=== PATIENT | male | born 1960 | race Caucasian/White ===

== ENCOUNTER 2022-11-10 11:13 | Emergency (ER) | payer BC ==
[~2022-11-10] VITALS: Ht 175 cm; Wt 117.0 kg
[2022-11-10] MEDS ORDERED: NS IV 1000 ML 1,000 ML IV STA (11:23)
--- NOTE | 2022-11-10 11:28 | ED Abdominal Pain ---
General Stated Complaint: ABD PAIN | LOWER BACK PAIN | HX OF KIDNEY STONES Source of Information: Patient Exam Limitations: No Limitations History of Present Illness Date Seen by Provider: Nov 10, 2022 Time Seen by Provider: 11:25 Initial Comments Patient is a 61-year-old male who presents ED with left lower groin pain, left flank pain. Symptoms started around 6:00 this morning when he woke up. Described as sharp and intermittent with increased intensity. Rates pain 12 out of 10. Reports vomiting 3 times this morning. Pain initially started in his left groin and has radiated to his left flank. History of similar type symptoms in the past diagnosed with a kidney stone several years ago that required lithotripsy. Patient denies of any pain with urination, decreased urine output, hematuria, chest pain, cough, short of breath, fever, chills. Patient denies taking thing for pain. Denies of any history. Denies any testicle or pain, testicle swelling Allergies and Home Medications Allergies Coded Allergies: No Known Drug Allergies (Unverified , 11/10/22) Patient Home Medication List Home Medication List Reviewed: Yes Hydrocodone/Acetaminophen (Hydrocodone-Acetamin 5-325 mg) 5 Mg-325 Mg Tablet, 1 TAB PO Q4H PRN for PAIN-MODERATE (5-7) Prescribed by: VENANCIO ROMO on 11/10/22 1308 Ondansetron (Ondansetron Odt) 4 Mg Tab.rapdis, 4 MG SL Q4H PRN for NAUSEA/VOMITING Prescribed by: VENANCIO ROMO on 11/10/22 1308 Tamsulosin HCl (Flomax) 0.4 Mg Cap, 0.4 MG PO DAILY Prescribed by: VENANCIO ROMO on 11/10/22 1308 Review of Systems Review of Systems Constitutional: No diaphoresis EENTM: No Blurred Vision, No Double Vision, No Eye Pain Respiratory: Denies Cough, Denies Orthopnea Gastrointestinal: Abdominal Pain; Denies Diarrhea; Nausea, Vomiting Genitourinary: Denies Burning, Denies Drainage; Flank Pain Musculoskeletal: back pain; No joint pain Skin: No change in color, No change in hair/nails All Other Systems Reviewed Negative Unless Noted: Yes Physical Exam Vital Signs Vital Signs - First Documented 11/10/22 11/10/22 11:20 13:39 Temp 35.9 Pulse 72 Resp 18 B/P (MAP) 125/66 Pulse Ox 97 Capillary Refill : Height/Weight/BMI Height: '" Weight: lbs. oz. kg; BMI Method: General Appearance: WD/WN, no apparent distress HEENT: PERRL/EOMI, normal ENT inspection, TMs normal, pharynx normal Neck: non-tender, full range of motion, supple Respiratory: chest non-tender, lungs clear, normal breath sounds, no respiratory distress, no accessory muscle use Cardiovascular: regular rate, rhythm, no edema, no gallop, no JVD Gastrointestinal: normal bowel sounds, soft, no organomegaly, tenderness (Left groin tenderness, left flank tenderness. Normal bowel sounds throughout.) Extremities: normal range of motion, non-tender, normal inspection Back: normal inspection, CVA tenderness (L) Neurologic/Psychiatric: lens examiner II-XII nml as tested, no motor/sensory deficits, alert, normal mood/affect, oriented x 3 Skin: normal color, warm/dry Progress/Results/Core Measures Results/Orders Lab Results Laboratory Tests Test 11/10/22 11:25 11/10/22 13:07 Range/Units White Blood Count 8.9 4.3-11.0 10^3/uL Red Blood Count 4.61 4.30-5.52 10^6/uL Hemoglobin 14.7 13.3-17.7 g/dL Hematocrit 44 40-54 % Mean Corpuscular Volume 96 80-99 fL Mean Corpuscular Hemoglobin 32 25-34 pg Mean Corpuscular Hemoglobin Concent 33 32-36 g/dL Red Cell Distribution Width 13.3 10.0-14.5 % Platelet Count 244 130-400 10^3/uL Mean Platelet Volume 10.7 9.0-12.2 fL Immature Granulocyte % (Auto) 0 % Neutrophils (%) (Auto) 68 42-75 % Lymphocytes (%) (Auto) 23 12-44 % Monocytes (%) (Auto) 6 0-12 % Eosinophils (%) (Auto) 2 0-10 % Basophils (%) (Auto) 1 0-10 % Neutrophils # (Auto) 6.1 1.8-7.8 10^3/uL Lymphocytes # (Auto) 2.1 1.0-4.0 10^3/uL Monocytes # (Auto) 0.6 0.0-1.0 10^3/uL Eosinophils # (Auto) 0.2 0.0-0.3 10^3/uL Basophils # (Auto) 0.1 0.0-0.1 10^3/uL Immature Granulocyte # (Auto) 0.0 0.0-0.1 10^3/uL Sodium Level 142 135-145 MMOL/L Potassium Level 4.3 3.6-5.0 MMOL/L Chloride Level 106 98-107 MMOL/L Carbon Dioxide Level 23 21-32 MMOL/L Anion Gap 13 5-14 MMOL/L Blood Urea Nitrogen 15 7-18 MG/DL Creatinine 1.20 0.60-1.30 MG/DL Estimat Glomerular Filtration Rate 68 BUN/Creatinine Ratio 13 Glucose Level 170 H 70-105 MG/DL Calcium Level 9.4 8.5-10.1 MG/DL Corrected Calcium 9.2 8.5-10.1 MG/DL Total Bilirubin 0.5 0.1-1.0 MG/DL Aspartate Amino Transf (AST/SGOT) 17 5-34 U/L Alanine Aminotransferase (ALT/SGPT) 27 0-55 U/L Alkaline Phosphatase 46 40-136 U/L Total Protein 8.5 H 6.4-8.2 GM/DL Albumin 4.3 3.2-4.5 GM/DL Lipase 13 8-78 U/L Urine Color YELLOW Urine Clarity CLEAR Urine pH 7.0 5-9 Urine Specific [place] 1.025 H 1.016-1.022 Urine Protein 2+ H NEGATIVE Urine Glucose (UA) NEGATIVE NEGATIVE Urine Ketones NEGATIVE NEGATIVE Urine Nitrite NEGATIVE NEGATIVE Urine Bilirubin NEGATIVE NEGATIVE Urine Urobilinogen 0.2 < = 1.0 MG/DL Urine Leukocyte Esterase NEGATIVE NEGATIVE Urine RBC (Auto) 2+ H NEGATIVE Urine RBC 10-25 H /HPF Urine WBC RARE /HPF Urine Squamous Epithelial Cells NONE /HPF Urine Crystals NONE /LPF Urine Bacteria NEGATIVE /HPF Urine Casts NONE /LPF Urine Mucus NEGATIVE /LPF Urine Culture Indicated NO My Orders Orders - DMITYR RESENDEZ Ua Culture If Indicated (11/10/22 11:15) Cbc With Automated Diff (11/10/22 11:23) Comprehensive Metabolic Panel (11/10/22 11:23) Lipase (11/10/22 11:23) Ns Iv 1000 Ml (Sodium Chloride 0.9%) (11/10/22 11:23) Morphine Injection (Morphine Injection (11/10/22 11:30) Ct Abd/Pelvis Wo(Kidney Stone) (11/10/22 11:23) Ketorolac Injection (Ketorolac Injection (11/10/22 11:30) Ondansetron Injection (Zofran Injectio (11/10/22 11:30) Fentanyl Injection (Fentanyl Injection (11/10/22 12:17) Medications Given in ED Current Medications Medications Dose Ordered Sig/Sagar Route Start Time Stop Time Status Last Admin Dose Admin Ketorolac Tromethamine 30 mg ONCE ONCE IVP 11/10/22 11:30 11/10/22 11:31 DC 11/10/22 11:32 30 MG Morphine Sulfate 4 mg ONCE ONCE IVP 11/10/22 11:30 11/10/22 11:31 DC 11/10/22 11:32 4 MG Ondansetron HCl 4 mg ONCE ONCE IVP 11/10/22 11:30 11/10/22 11:31 DC 11/10/22 11:32 4 MG Vital Signs/I&O 11/10/22 11/10/22 11:20 13:39 Temp 35.9 Pulse 72 72 Resp 18 18 B/P (MAP) 125/66 Pulse Ox 97 97 Departure Communication (PCP) History of kidney stones presents ED with left groin pain, left flank pain. acute onset this morning. Vomited 3 different times. Differential diagnosis, urolithiasis, nephrolithiasis, UTI, diverticulitis. Patient was hypertensive but afebrile. CBC, CMP, lipase, urinalysis was ordered. CBC, CMP grossly unremarkable. Blood sugar 170. Urinalysis positive for hematuria without evidence of infection. Received Toradol, Zofran, morphine and a liter of fluid with improvement of pain. CT abdomen pelvis showed 1 to 2 mm punctate stone distal left ureter results in mild upstream left-sided hydroureteronephrosis with additional nonobstructing left renal calculi. Patient started having a return of pain. Received a dose of fentanyl with improvement of pain. Urinating without difficulties. Currently pain-free. Discussed all results with patient that this will likely pass on its own being this small. Will discharge with Flomax, hydrocodone, Zofran and provide urology outpatient follow-up. If any worsening symptoms such as severe pain, passing of clots, decreased urine output, fever, chills to return back to ED. Patient agrees with plan of action. Provided [facility] urology outpatient follow-up Impression Primary Impression: Ureterolithiasis Disposition: 01 HOME, SELF-CARE Condition: Stable Departure-Patient Inst. Decision time for Depature: 13:06 Referrals: SELFISMAEL MD (PCP/Family) Primary Care Physician Patient Instructions: Kidney Stone, Adult ED Add. Discharge Instructions: Take pain medication as needed. Recommend staying hydrated. Flomax to help urinate. Zofran for nausea. Provided urology outpatient follow-up. If any worsening symptoms such as severe pain, decreased urine output to return back to ED. [facility] urology [phone] Scripts Hydrocodone/Acetaminophen (Hydrocodone-Acetamin 5-325 mg) 5 Mg-325 Mg Tablet 1 TAB PO Q4H PRN for PAIN-MODERATE (5-7), #8 TAB Prov: DMITRY RESENDEZ 11/10/22 Ondansetron (Ondansetron Odt) 4 Mg Tab.rapdis 4 MG SL Q4H PRN for NAUSEA/VOMITING, #8 TAB Prov: DMITRY RESENDEZ 11/10/22 Tamsulosin HCl (Flomax) 0.4 Mg Cap 0.4 MG PO DAILY, #20 CAP Prov: DMITRY RESENDEZ 11/10/22 DMITRY RESENDEZ Nov 10, 2022 11:28
[2022-11-10] MEDS ORDERED: ONDANSETRON INJECTION 4 MG/2 ML (SDV) IVP ONE (11:30)
[2022-11-10] MEDS ORDERED: KETOROLAC INJ 30 MG/ML VIAL IVP ONE (11:30)
[2022-11-10] MEDS ORDERED: morphine INJ 4 MG/ML 1 ML (VIAL/SYRINGE) IVP ONE (11:30)
[2022-11-10 11:34] LABS: BASOPHILS # (AUTO) 0.1 10^3/uL (0.0-0.1); BASOPHILS % (AUTO) 1 % (0-10); EOSINOPHILS # (AUTO) 0.2 10^3/uL (0.0-0.3); EOSINOPHILS % (AUTO) 2 % (0-10); HEMATOCRIT 44 % (40-54); HEMOGLOBIN 14.7 g/dL (13.3-17.7); LYMPHOCYTES # (AUTO) 2.1 10^3/uL (1.0-4.0); LYMPHOCYTES % (AUTO) 23 % (12-44); MEAN CORPUSCULAR HEMOGLOBIN 32 pg (25-34); MEAN CORPUSCULAR HGB CONC 33 g/dL (32-36); MEAN CORPUSCULAR VOLUME 96 fL (80-99); MEAN PLATELET VOLUME 10.7 fL (9.0-12.2); MONOCYTES # (AUTO) 0.6 10^3/uL (0.0-1.0); MONOCYTES % (AUTO) 6 % (0-12); NEUTROPHILS # (AUTO) 6.1 10^3/uL (1.8-7.8); NEUTROPHILS % (AUTO) 68 % (42-75); PLATELET COUNT 244 10^3/uL (130-400); WHITE BLOOD COUNT 8.9 10^3/uL (4.3-11.0)
[2022-11-10 11:46] LABS: ALBUMIN 4.3 GM/DL (3.2-4.5); POTASSIUM 4.3 MMOL/L (3.6-5.0)
[2022-11-10 11:48] LABS: CALCIUM 9.4 MG/DL (8.5-10.1)
[2022-11-10 11:49] LABS: TOTAL PROTEIN 8.5 GM/DL (6.4-8.2)
[2022-11-10 11:50] LABS: BILIRUBIN,TOTAL 0.5 MG/DL (0.1-1.0)
[2022-11-10 11:52] LABS: CREATININE SERUM 1.2 MG/DL (0.60-1.30)
--- NOTE | 2022-11-10 12:08 | Diagnostic Imaging Report ---
PROCEDURE: CT urinary tract, rule out kidney stone. TECHNIQUE: Multiple contiguous axial images were obtained through the abdomen and pelvis without the use of intravenous contrast. Auto Exposure Controls were utilized during the CT exam to meet ALARA standards for radiation dose reduction. INDICATION: Pain on the left. FINDINGS: There is a punctate 1 to 2 mm calculus in the distal left ureter near the UVJ resulting in a mild degree of upstream left-sided hydroureteronephrosis with perinephric and periureteric stranding. No urinoma or fluid collection. There is an additional nonobstructing 2 mm stone within left lower pole calyx as well as a punctate 1 mm upper pole left-sided stone. The right kidney unobstructed and negative. There is noninflamed fatty umbilical hernia. No viscus herniation. Liver density is in keeping with mild steatosis. Gallbladder and bile ducts negative. Spleen, adrenals and pancreas unremarkable. The aorta is nonaneurysmal. There is no ileus or bowel obstruction. There is a normal appendix. There is no diverticulitis with mild noninflamed sigmoid diverticulosis. IMPRESSION: 1. 1 to 2 mm punctate stone distal left ureter results in mild upstream left-sided hydroureteronephrosis with additional nonobstructing left renal calculi. 2. Fatty umbilical hernia and mild fatty infiltration of the liver with mild noninflamed sigmoid diverticulosis. Dictated by: Dictated on workstation # [id number]
[2022-11-10] MEDS ORDERED: fentaNYL INJECTION 100 MCG/2 ML VIAL IVP STA (12:17)
[2022-11-10] MEDS ORDERED: TMSL.4C PO (13:08)
[2022-11-10] MEDS ORDERED: ONDA4TAB11 SL (13:08)
[2022-11-10] MEDS ORDERED: ACHD5005 PO (13:08)
[2022-11-10 13:29] LABS: CLARITY,URINE CLEAR; COLOR,URINE YELLOW
[2022-11-10 13:31] LABS: BACTERIA,URINE NEGATIVE /HPF; BILIRUBIN,URINE NEGATIVE (NEGATIVE); GLUCOSE, URINE (UA) NEGATIVE (NEGATIVE); KETONES,URINE NEGATIVE (NEGATIVE); LEUKOCYTE ESTERASE ,URINE NEGATIVE (NEGATIVE); NITRITE,URINE NEGATIVE (NEGATIVE); PROTEIN,URINE 2+ (NEGATIVE); WBC,URINE RARE /HPF
[2022-11-10 13:39] VITALS: BP 125/66
== END 2022-11-10 13:40 | disposition home or self-care (01) ==
LOC: EDUNIT# 11:13 → ER 11:16
DX: N20.1 Calculus of ureter (principal)
CPT/HCPCS: 36415; 74176; 80053; 81000; 83690; 85025